=== PATIENT | female | born 1955 | race Caucasian/White ===

== ENCOUNTER → 2023-10-24 10:39 | Outpatient (REF) | payer BC, SELFPAY | LOC: MRI 3T 10:39 | PROVIDERS: ATTENDING PHYSICIAN Internal Medicine; FAMILY PHYSICIAN Family Medicine | DX: C50.919 Malignant neoplasm of unspecified site of unspecified female breast (principal) | CPT/HCPCS: 77049; A9585 ==

== ENCOUNTER → 2023-10-31 09:48 | Outpatient (REF) | payer BC, SELFPAY | LOC: MRI 3T 09:48 | PROVIDERS: ATTENDING PHYSICIAN Internal Medicine; FAMILY PHYSICIAN Family Medicine | DX: C50.919 Malignant neoplasm of unspecified site of unspecified female breast (principal) | CPT/HCPCS: 74183; A9575 ==

== ENCOUNTER → 2024-02-12 07:45 | Outpatient (REF) | payer BC, SELFPAY | LOC: HWRAD 07:45 | PROVIDERS: ATTENDING PHYSICIAN Internal Medicine Gastroenterology; FAMILY PHYSICIAN Family Medicine | DX: K82.9 Disease of gallbladder, unspecified (principal); R93.3 Abnormal findings on diagnostic imaging of other parts of digestive tract | CPT/HCPCS: 76700 ==

== ENCOUNTER → 2024-05-09 08:50 | Outpatient (REF) | payer BC, SELFPAY | LOC: HWRAD 08:50 | PROVIDERS: ATTENDING PHYSICIAN Internal Medicine; FAMILY PHYSICIAN Family Medicine | DX: C50.919 Malignant neoplasm of unspecified site of unspecified female breast (principal) | CPT/HCPCS: 76830; 76856 ==

== ENCOUNTER → 2024-11-29 07:22 | Outpatient (REF) | payer BC, SELFPAY | LOC: HWRAD 07:22 | PROVIDERS: ATTENDING PHYSICIAN Internal Medicine Gastroenterology; FAMILY PHYSICIAN Family Medicine | DX: K82.9 Disease of gallbladder, unspecified (principal); R93.3 Abnormal findings on diagnostic imaging of other parts of digestive tract | CPT/HCPCS: 76700 ==

== ENCOUNTER → 2024-12-13 10:02 | Outpatient (REF) | payer BC, SELFPAY | LOC: MRI 3T 10:02 | PROVIDERS: ATTENDING PHYSICIAN Internal Medicine; FAMILY PHYSICIAN Family Medicine | DX: Z15.01 Genetic susceptibility to malignant neoplasm of breast (principal); Z15.89 Genetic susceptibility to other disease; Z15.09 Genetic susceptibility to other malignant neoplasm; R92.313 Mammographic fatty tissue density, bilateral breasts | CPT/HCPCS: 77049; A9585 ==

== ENCOUNTER → 2024-12-16 09:13 | Outpatient (REF) | payer BC, SELFPAY | LOC: PAVMRI 09:13 | PROVIDERS: ATTENDING PHYSICIAN Internal Medicine; PRIMARYCARE PHYSICIAN Family Medicine | DX: Z15.01 Genetic susceptibility to malignant neoplasm of breast (principal); Z15.89 Genetic susceptibility to other disease; Z15.09 Genetic susceptibility to other malignant neoplasm | CPT/HCPCS: 74183; A9575 ==

== ENCOUNTER → 2025-02-13 07:47 | Outpatient (REF) | payer BC, SELFPAY | LOC: HWRAD 07:47 | PROVIDERS: ATTENDING PHYSICIAN Internal Medicine; FAMILY PHYSICIAN Family Medicine | DX: Z15.01 Genetic susceptibility to malignant neoplasm of breast (principal); Z15.89 Genetic susceptibility to other disease; Z15.09 Genetic susceptibility to other malignant neoplasm | CPT/HCPCS: 76830; 76856 ==

== ENCOUNTER → 2025-04-10 08:02 | Outpatient (REF) | payer MEDICARE, OTHER, SELFPAY | LOC: HWRAD 08:02 | PROVIDERS: ATTENDING PHYSICIAN Specialist; FAMILY PHYSICIAN Family Medicine | DX: N28.1 Cyst of kidney, acquired (principal) | CPT/HCPCS: 76770 ==